=== PATIENT | female | born 1965 | race Caucasian/White ===

== ENCOUNTER 2017-12-23 09:40 | Day surgery (SDC) | payer MEDICAID ==
[2017-12-23] MEDS ORDERED: Midazolam 1 MG/ML 2 ML SDV IV ONE (09:41)
[2017-12-23] MEDS ORDERED: Propofol 200 MG/20 ML SDV IV ONE (09:41)
[2017-12-23] MEDS ORDERED: Ondansetron 4 MG/2 ML SDV IVPUSH ONE (09:41)
[2017-12-23] MEDS ORDERED: Lactated Ringers 1,000 ML IV SCH (09:45)
--- NOTE | 2017-12-23 12:13 | PCM.OPNOTE ---
- General Post-Op/Procedure Note Date of Surgery/Procedure: 12/23/17 Operative Procedure(s): c scope Findings: normal exam Pre Op Diagnosis: screening scope Post-Op Diagnosis: normal exam Anesthesia Technique: MAC Primary Surgeon: Ej Del Cid Anesthesia Provider: Maren Humphries Pathology: none Complications: None Condition: Good Free Text/Narrative:: see dictation
[2017-12-23 12:42] VITALS: BP 117/81
--- NOTE | 2017-12-23 12:54 | OR ---
DATE OF OPERATION: 12/23/2017 SURGEON: Ej Del Cid MD PREOPERATIVE DIAGNOSIS: Need for screening C scope. POSTOPERATIVE DIAGNOSIS: Normal colon. PROCEDURE PERFORMED: Colonoscopy. INDICATIONS FOR PROCEDURE: This is a 52-year-old white female who presents for her initial screening colonoscopy. She was offered and accepted same. DESCRIPTION OF PROCEDURE: After an excellent IV sedation was administered, digital rectal exam was performed. No marked abnormality was noted. Flexible colonoscope was inserted and advanced to the cecum without difficulty. The prep was excellent. The following findings were noted. Ascending colon, unremarkable. Transverse colon, unremarkable. Descending colon, unremarkable. Sigmoid and rectum unremarkable. Colon was deflated. The scope was removed. The patient tolerated the procedure well, and was taken to recovery room in good condition. /[id number] /MODL
== END 2017-12-23 13:05 | disposition home or self-care (01) ==
LOC: FB.SDS 09:40
PROVIDERS: ATTEND Surgery
DX: Z12.11 Encounter for screening for malignant neoplasm of colon (principal); F33.41 Major depressive disorder, recurrent, in partial remission; K21.9 Gastro-esophageal reflux disease without esophagitis; Z88.2 Allergy status to sulfonamides; Z91.040 Latex allergy status; J30.81 Allergic rhinitis due to animal (cat) (dog) hair and dander; Z90.710 Acquired absence of both cervix and uterus
CPT/HCPCS: J2250; J2405; J2704; J7120